=== PATIENT | female | born 1990 | race American Indian/Alaskan Native ===

== ENCOUNTER 2021-04-15 20:15 | Emergency (ER) | payer SELFPAY ==
[2021-04-15 22:57] LABS: Mean Corpuscular HGB Conc 29 % (30-34); Red Blood Count 2.57 M/mm3 (3.65-5.03)
[2021-04-15 23:00] LABS: Bilirubin,Urine NEG (Negative); Blood,Urine NEG (Negative); Color,Urine Yellow (Yellow); Mucus,Urine FEW /HPF; Protein,Urine <15 mg/dL mg/dL (Negative)
[2021-04-15 23:08] LABS: Mean Corpuscular Volume 70 fl (79-97); Platelet Count 145 K/mm3 (140-440); Red Cell Distribution Width 36.4 % (13.2-15.2)
[2021-04-15 23:11] LABS: Hematocrit 17.9 % (30.3-42.9); Hemoglobin 5.2 gm/dl (10.1-14.3)
[2021-04-15 23:15] LABS: Alanine Aminotransferase 6 units/L (7-56); Albumin 3.8 g/dL (3.9-5); Blood Urea Nitrogen 8 mg/dL (7-17); Calcium 8.6 mg/dL (8.4-10.2); Hemolysis Index 0
[2021-04-15 23:19] LABS: BUN/Creatinine Ratio 16
--- NOTE | 2021-04-16 00:16 | Emergency Department Report ---
ED N/V/D HPI - General Chief complaint: Nausea/Vomiting/Diarrhea Stated complaint: VOMITING Time Seen by Provider: 04/15/21 23:41 Source: patient Mode of arrival: Ambulatory Limitations: No Limitations - History of Present Illness Initial comments: Chief complaint: "I just want a work note to return back to work." HPI: This is a 30-year-old female with history of anemia who presents with nausea vomiting. She states that "in all honesty I had too much to drink a few days ago. I just need to go back to work." Patient states that she was hung over after drinking excessively. She plans to return to work on . She denies any pain. Denies weakness. She denies current vomiting. The symptoms occurred earlier over the weekend. Her last menstrual period 03/02/2021. She does not suspect . She has not required transfusion in the past. She denies fatigue or syncope. She denies dizziness. She does not desire blood transfusion. She only wants to return to work note. MD complaint: nausea, vomiting -: Gradual, days(s) (3 to 4 days prior) Description of Vomiting: food contents Description of Diarrhea: other (No diarrhea) Associated Abdominal Pain: No Radiation: none Severity: mild Pain Scale: 0 Consistency: now resolved Improves with: rest, other (Time) Worsens with: none Context: other ("Drinking excessively") Associated Symptoms: nausea/vomiting - Related Data Previous Rx's Medication Instructions Recorded Last Taken Type Ferrous Sulfate [Ferrous Sulfate 324 mg PO TID #90 tablet. 04/15/21 Unknown Rx 324 MG] Allergies Allergy/AdvReac Type Severity Reaction Status Date / Time No Known Allergies Allergy Unverified 04/15/21 21:50 ED Review of Systems ROS: Stated complaint: VOMITING Other details as noted in HPI Comment: All other systems reviewed and negative Constitutional: denies: chills, fever, malaise Respiratory: denies: cough, shortness of breath Cardiovascular: denies: chest pain Gastrointestinal: nausea, vomiting. denies: abdominal pain ED Past Medical Hx - Past Medical History Previous Medical History?: No - Surgical History Past Surgical History?: No - Medications Home Medications: Home Medications Medication Instructions Recorded Confirmed Last Taken Type Ferrous Sulfate [Ferrous Sulfate 324 mg PO TID #90 tablet. 04/15/21 Unknown Rx 324 MG] ED Physical Exam - General Limitations: No Limitations General appearance: alert, in no apparent distress - Head Head exam: Present: atraumatic, normocephalic - Eye Eye exam: Present: normal appearance - ENT ENT exam: Present: mucous membranes moist - Neck Neck exam: Present: normal inspection, full ROM - Respiratory Respiratory exam: Present: normal lung sounds bilaterally. Absent: respiratory distress, wheezes, rales, rhonchi - Cardiovascular Cardiovascular Exam: Present: regular rate, normal rhythm, normal heart sounds. Absent: systolic murmur, diastolic murmur, rubs, gallop - GI/Abdominal GI/Abdominal exam: Present: soft, normal bowel sounds. Absent: distended, tenderness, guarding, rebound - Extremities Exam Extremities exam: Present: normal inspection - Neurological Exam Neurological exam: Present: alert, oriented X3 - Psychiatric Psychiatric exam: Present: normal affect, normal mood - Skin Skin exam: Present: warm, dry, intact, normal color. Absent: rash ED Course Vital Signs 04/15/21 21:49 Temperature 98.7 F Pulse Rate 90 Respiratory 18 Rate Blood Pressure 136/63 O2 Sat by Pulse 100 Oximetry ED Medical Decision Making - Lab Data Result diagrams: 04/15/21 22:21 04/15/21 22:21 Laboratory Results - last 24 hr 04/15/21 04/15/21 04/15/21 22:21 22:21 Unknown WBC 7.3 RBC 2.57 L Hgb 5.2 L* Hct 17.9 L* MCV 70 L MCH 20 L MCHC 29 L RDW 36.4 H Plt Count 145 Sodium 138 Potassium 3.7 Chloride 103.6 Carbon Dioxide 26 Anion Gap 12 BUN 8 Creatinine 0.5 L Estimated GFR > 60 BUN/Creatinine Ratio 16 Glucose 87 Calcium 8.6 Total Bilirubin 0.30 AST 9 ALT 6 L Alkaline Phosphatase 60 Total Protein 6.3 Albumin 3.8 L Albumin/Globulin Ratio 1.5 Lipase 29 Urine Color Yellow Urine Turbidity Clear Urine pH 6.0 Ur Specific [place] 1.017 Urine Protein <15 mg/dl Urine Glucose (UA) Neg Urine Ketones Neg Urine Blood Neg Urine Nitrite Neg Urine Bilirubin Neg Urine Urobilinogen 2.0 Ur Leukocyte Esterase Sm Urine WBC (Auto) 10.0 H Urine RBC (Auto) 2.0 U Epithel Cells (Auto) 2.0 Urine Mucus Few - Medical Decision Making 1. Asymptomatic anemia: Patient understands that she has severe iron deficiency anemia. I have prescribed iron tablets. I referred patient to primary care physician. She declined blood transfusion. 2. Nausea vomiting after "excessive drinking". Symptoms have resolved. No significant metabolic derangement seen on chemistry. CBC chemistry with normal limits. Urinalysis within normal limits. Serum test negative. Critical care attestation.: If time is entered above; I have spent that time in minutes in the direct care of this critically ill patient, excluding procedure time. ED Disposition Clinical Impression: Iron deficiency anemia, Dehydration Disposition: [id number] TO HOME OR SELFCARE Is pt being admited?: No Does the pt Need Aspirin: No Condition: Stable Instructions: Preventing Iron Deficiency Anemia, Adult Prescriptions: Ferrous Sulfate [Ferrous Sulfate 324 MG] 324 mg PO TID #90 tablet. Referrals: MALLORY TILLMAN MD [Staff Physician] - 3-5 Days Forms: Work/School Release Form(ED)
[2021-04-16 00:48] VITALS: BP 115/69
[2021-04-16 02:51] LABS: Total Cells Counted 100
[2021-04-16 02:52] LABS: Anisocytosis 2+; Dimorphic RBC Yes; Hypochromasia 1+; Macrocytosis Few; Schistocytes Few
== END 2021-04-16 00:49 | disposition home or self-care (01) ==
LOC: ED 20:15
DX: D64.9 Anemia, unspecified (principal); E86.0 Dehydration; R11.2 Nausea with vomiting, unspecified; Z79.899 Other long term (current) drug therapy
CPT/HCPCS: 36415; 80053; 81001; 83690; 84703; 85007; 85025; 87086; 99283